=== PATIENT | female | born 1985 | race Caucasian/White ===

== ENCOUNTER → 2016-08-06 13:40 | Outpatient (CLI) | payer MEDICAID ==
[~2016-08-06 13:40] MED LIST: FERROUS SULFAT325 MG PO; MEPERIDINE HCL50 MG PO; MOTRIN600 MG; PRENATAL COMPLE1 TAB PO
[2016-08-30 06:55] VITALS: BMI 35.8
== END | disposition home or self-care (01) ==
LOC: D.LDO 13:40
DX: O24.419 Gestational diabetes mellitus in pregnancy, unspecified control (principal)

== ENCOUNTER → 2016-08-21 14:50 | Outpatient (CLI) | payer MEDICAID ==
[2016-08-30 06:55] VITALS: BMI 35.8
== END | disposition home or self-care (01) ==
LOC: D.LDO 14:50
DX: O36.8130 Decreased fetal movements, third trimester, not applicable or unspecified (principal); Z3A.38 38 weeks gestation of pregnancy

== ENCOUNTER → 2016-08-24 12:20 | Outpatient (CLI) | payer MEDICAID ==
[2016-08-30 06:55] VITALS: BMI 35.8
== END | disposition home or self-care (01) ==
LOC: D.LDO 12:20
DX: O36.8130 Decreased fetal movements, third trimester, not applicable or unspecified (principal); Z3A.38 38 weeks gestation of pregnancy

== ENCOUNTER 2016-08-30 05:00 | Inpatient (IN) | payer MEDICAID ==
[~2016-08-30] VITALS: Ht 152.4 cm; Wt 83.2 kg
[2016-08-30] MEDS ORDERED: PRENATAL COMPLE1 TAB PO (06:38)
[2016-08-30] MEDS ORDERED: FERROUS SULFAT325 MG PO (06:38)
[2016-08-30 06:55] VITALS: BP 117/66; Ht 152.4 cm; Wt 83.2 kg
[2016-08-30 07:37] LABS: HEMATOCRIT 34.8 % (36.0-48.0); HEMOGLOBIN 11.4 g/dL (12-16); MCH 29.5 pg (26.0-34.0); MCHC 32.8 g/dL (31.0-37.0); MCV 90.2 fL (80.0-100.0); MEAN PLATELET VOLUME 9.3 fL (7.4-10.4); RBC 3.86 10x6/uL (4.00-5.40); WBC 7.8 10x3/uL (4.8-10.8)
[2016-08-30 08:24] LABS: APPEARANCE CLEAR (CLEAR); BILIRUBIN NEGATIVE (NEGATIVE); COLOR STRAW (YELLOW); GLUCOSE NEGATIVE (NEGATIVE); KETONE NEGATIVE (NEGATIVE); LEUKOCYTE ESTERASE NEGATIVE (NEGATIVE); NITRITE NEGATIVE (NEGATIVE); PROTEIN NEGATIVE (NEGATIVE); SPECIFIC GRAVITY 1.015 (1.005-1.020); UROBILINOGEN NORMAL (NORMAL)
--- NOTE | 2016-08-30 22:00 | NUR ---
ROUNDS MADE. PT SITTING UP IN BED W/SPOUSE AT BEDSIDE. PAIN REASSESSED. PT REPORTS ABD CRAMPING IS BETTER. NEEDS ASSESSED. PT REQUEST ADDITIIONAL ICE WATER TO DRINK. SPOUSE ACCOMPANIES THIS RN TO WATER FAUCET AND ORIENTED TO NURISHMENT STATION SO HE MAY GET WHAT THE PT WANTS. FRESH ICE WATER SERVED. PT'S SPOUSE TAKES A SECOND SANDWICH TRAY AND 2 CUPS OF PUDDING TO PT. NO FUTHER NEEDS EXPRESSED AT THIS TIME. BED LOW, SIDE RAILS UP X 2. CALL LIGHT AT PT'S SIDE.
--- NOTE | 2016-08-30 23:05 | NUR ---
ROUNDS MADE. PT LYING IN BED W/LIGHTS TURNED DOWN. SPOUSE ON SOFA. PT'S PAIN AND NEEDS ASSESSED. PT DENIES PAIN OR NEEDS AT THIS TIME. PILLOW AND BLANKET PROVIDED FOR SPOUSE.
--- NOTE | 2016-08-31 01:06 | NUR ---
ROUNDS MADE. PT SLEEPIN IN LOW LANGE'S. RESP EVEN. SNORING AUDIBLE. SPOUSE SLEEPING ON SOFA. BOTH LEFT UNDISTURBED AT THIS TIME.
--- NOTE | 2016-08-31 02:53 | NUR ---
ROUNDS MADE. PT RESTING QUIETLY W/EYES CLOSED. APPEARS TO BE SLEEPING. RESP EVEN. PT LEFT UNDISTURBED AT THIS TIME.
--- NOTE | 2016-08-31 04:30 | NUR ---
PT'S SPOUSE TO NURSING DESK. REQUEST INFANT BE BROUGHT TO ROOM. THIS RN TO NBN, TRANSPORTS VIA CRIB TO PT'S ROOM. ID BANDS VERIFIED PER PROTOCOL. PT'S NEEDS AND PAIN ASSESSED. PT REPORTS SHE IS HAVING ABD CRAMPING. MOTRIN OFFERED. PT ACCEPTS. MOTRIN 600MG PO GIVEN. FRESH ICE WATER SERVED. NO FURTHER NEEDS VOICED AT THIS TIME.
--- NOTE | 2016-08-31 05:30 | NUR ---
PT'S TO NURSING STATION REQUESTING A BOTTLE FOR INFANT. REPORTS PT IS ATTEMPTING TO NURSE, BUT IT IS PAINFUL, THERFORE REQUEST A BOTTLE FOR FEEDING. THIS RN TO ROOM WITH BOTTLE. INSTRUCTIONS GIVEN. PT'S NEEDS A PAIN ASSESSED. PT DENIES NEEDS AT PRESENT. REPORTS ABD CRAMPING IS BETTER.
[2016-08-31 06:17] LABS: RAPID PLASMA REAGIN Non Reactive (Non Reactive)
--- NOTE | 2016-08-31 07:30 | NUR ---
Bottle taken to room per pt request. When ask states infant last ate around 0500 but only took 5ml, encouraged pt and spouse to try and feed 30ml in 30 minutes and if have difficulty with this to call nursery or use call light and someone will come assist. AM assessent completed at this time as charted on flowsheet. Denies pain or discomfort but will call if that changes. Regular diet to room per dietary. Fundus firm at u/u, she denies any clots with voids and light bleeding noted to elaine pad. No needs voiced at this time.
[2016-08-31 07:50] LABS: HEMATOCRIT 36.1 % (36.0-48.0); HEMOGLOBIN 11.7 g/dL (12-16); MCH 29.3 pg (26.0-34.0); MCHC 32.4 g/dL (31.0-37.0); MCV 90.5 fL (80.0-100.0); MEAN PLATELET VOLUME 9.5 fL (7.4-10.4); RBC 3.99 10x6/uL (4.00-5.40); RDW 14.1 % (11.5-14.5)
--- NOTE | 2016-08-31 07:55 | NUR ---
Nursery nurse to room to see if assistance is needed with feeding. Pt calls out with request for pain med, this rn to room for assesment. Pt up and walking about room. Rates "cramps" at 5/10. Meds given as charted on emar. No other needs at this time.
--- NOTE | 2016-08-31 08:01 | NUR ---
Dr Pettit on unit and reviews am labs before going in to pt room. Pt questions when discharge would occur. Nursery nurse still in room and states that MD pt has choosen for infant care has not yet rounded, explained to pt that she would be able to discharge with infant. Pt very grateful for this information. Denies any other questions or needs at this time.
--- NOTE | 2016-08-31 08:45 | OP ---
PATIENT NAME: EDDIE JOHN MEDICAL RECORD: [id number] LOCATION:[id number] ADMISSION DATE:08/30/16 SURGEON: QUANG CARTER MD DATE OF OPERATION: 08/30/2016 Delivery Note Spontaneous vaginal delivery of female infant weighing 7 pounds 9.5 ounces, Apgars 7 and 9, tight nuchal cord required ligation prior to delivery of the thorax. Infant was thoroughly suctioned after delivery. Spontaneous delivery of intact-appearing placenta. No lacerations, no episiotomy, epidural anesthesia. TRANSINT:[id number] Voice Confirmation ID: [id number] DOCUMENT ID: [id number] QUANG CARTER MD at 0845 CC: [id number] DICTATION DATE: 08/30/161928 DOUBLE END [place] OPERATOR: 08/30/168 ADM IN [facility] [address] [place] [address]
--- NOTE | 2016-08-31 08:48 | NUR ---
Pain reassessment, pt rates at 07/03. infant in crib at bedside, side rails up x 2 with phone and call light in reach, spouse remains at bedside.
--- NOTE | 2016-08-31 09:56 | NUR ---
Pt visiting with family, denies pain or discomfort at this time, no needs voiced. Call light in reach.
--- NOTE | 2016-08-31 10:45 | NUR ---
Pt spouse and family friend out to desk with questions about paperwork on infant. Taken to nursery for questions to be answered.
--- NOTE | 2016-08-31 12:18 | NUR ---
Pt denies any needs at this time. Sitting in chair at bedside with regular lunch tray. Denies pain or discomfort and voices no needs for nurse. Spouse at her side and at bedside in crib.
--- NOTE | 2016-08-31 14:18 | NUR ---
Large cup of ice water per request no other needs at this time.
--- NOTE | 2016-08-31 16:30 | NUR ---
Pt sitting in rocker at bedside feeding bottle, complains of cramping/contractions at times that she rates at 3/10 but denies need for pain med. Family members at bedside.
[2016-08-31] MEDS ORDERED: MOTRIN600 MG (18:36)
[2016-08-31] MEDS ORDERED: MEPERIDINE HCL50 MG PO (18:37)
[2016-08-31 19:05] VITALS: BP 116/67
--- NOTE | 2016-08-31 19:05 | NUR ---
WALKING ABOUT IN ROOM. BACK TO BED FOR VITAL SIGN ASSESSMENT. FUNDUS FIRM U/2. LOCHIA RUBRA SCANT. RATES PAIN A 0 OF 10 ON PAIN SCALE. PT'S SPOUSE IN ROOM WITH HER. SALINE LOCK NOTED IN RT HAND AND DISCONTINUED. INTACT CATH. TIP NOTED. BREATH SOUNDS CLEAR AND BOWEL SOUNDS AUDIBLE. REVIEWED DISCHARGE INSTRUCTIONS WITH PT. AND SPOUSE TRANSLATES INSTRUCTIONS. PT. SPEAKS SOME ARGENTINE AND STATES SHE UNDERSTANDS . ASKED IF ANY QUESTIONS AND PT. STATES "NO". ENCOURAGED PT. TO CONTINUE VITAMINS. APPT. CARD AND SCRIPTS PROVIDED TO PT. PT. AND SPOUSE WITH QUESTIONS TO WHEN INFANT WILL DISCHARGE. INFORMED WOULD CHECK WITH NBN FOR INFORMATION.
--- NOTE | 2016-08-31 19:20 | NUR ---
PT. AND SPOUSE INFORMED THAT TWO TEST WERE NEEDED ON AND LAST TEST WILL BE DONE AROUND 8PM SO DISCHARGE WILL BE THEREAFTER. BOTH STATED UNDERSTANDING.
--- NOTE | 2016-08-31 20:09 | NUR ---
NBN IN ROOM AND DISCHARGE INSTRUCTIONS GIVEN.
--- NOTE | 2016-08-31 20:31 | NUR ---
PT. PREPARING INFANT FOR DISCHARGE.
--- NOTE | 2016-08-31 20:40 | NUR ---
DISCHARGED OFF UNIT VIA WHEELCHAIR. FAMILY WITH PT.
== END 2016-08-31 20:40 | disposition home or self-care (01) | DRG 775 ==
LOC: D.LD 05:00
PROVIDERS: ADMIT Obstetrics & Gynecology
PROC: 10E0XZZ Delivery of Products of Conception, External Approach (ICD-10-PCS; principal; 2016-08-30)
DX: O69.81X0 Labor and delivery complicated by cord around neck, without compression, not applicable or unspecified (principal); Z3A.39 39 weeks gestation of pregnancy; Z37.0 Single live birth